=== PATIENT | female | born 1965 | race Caucasian/White ===

== ENCOUNTER → 2016-06-11 | Outpatient (CLI) | payer BC ==
[~2016-06-11] VITALS: Ht 167.6 cm; Wt 84.8 kg
[~2016-06-11] MED LIST: NABUMETONE 750750 M1 PO; TRIAMTERENE/HCT1 CA1 OR
--- NOTE | ~2016-06-11 | HPC ---
[facility] [place] [address] PAIN MANAGEMENT CONSULTATION Name: KELLY PEARL [id number] Admission: 06/11/16 Attend Phys: Wagner Vasquez DO Discharge: Date of : 61 Report #: [id number] THIS REPORT FOR: //name// CC: [facility] physician/PCP Josue Vasquez HISTORY OF PRESENT ILLNESS: The patient is a 51-year-old female seen in consultation at the request of Dr. Ramirez for evaluation of pain, low back, left hip and leg. The patient notes pain began about 9 months ago without antecedent trauma and overuse. She has been fairly active, pain has becomes problematic to the point that it interferes with function. She notes climbing stairs or walking exacerbates pain, developing some weakness in the left leg though she notes no bowel or bladder incontinence changes. Notes the pain is continuous, aching and tender, rates anywhere from 5-7 on a 0-10 visual analog scale. REVIEW OF SYSTEMS: Complete review of systems attached to chart and gone over with the patient. She is , does not smoke, drink alcohol to excess. History of some distant asthma, chronic osteoarthritis for which she has been seeing Dr. Ramirez for some time, primarily effects hands and elbow. She has been on Lyrica in the past, but it was quite costly and she discontinued it, does continue on nabumetone. Has had some issue with fluid retention episodically and takes triamterene. The patient had a knee surgery in 1997, bladder surgery (bladder sling) in 2005. She has two adult daughters, 27 and 31 years of age. 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 She has continued to work despite pain. Pain impact score is fairly low, averaging about 2.8 for all indices queried. PHYSICAL EXAMINATION: GENERAL: Reveals a 5 feet 6 inches, 187 pounds female in moderate distress. Blood pressure 159/73, pulse 80, respirations 16. NEUROLOGIC: Cranial nerves 2-12 are grossly intact. HEENT: Pupils equal and reactive to light and accommodation. Extraocular muscles are intact. NECK: Cervical range of motion is full. Thyroid is unremarkable. Upper extremity strength is preserved. HEART: Regular rhythmical without murmur. LUNGS: Clear to auscultation. ABDOMEN: Essentially unremarkable. EXTREMITIES: Rises from chair using armrest. Gait is tandem. Diffuse tenderness across the low back. A little bit of tenderness in the left SI area. She can walk on her toes and heels. Lumbar flexion is good and 90+ degrees though left hip flexion and plantar flexion strength is modestly diminished. Nominally positive straight leg raise on left. Patellar and Achilles reflexes are preserved. Jennifer test is nominally positive on the left side as well. [facility] [address] [place] [address] PAIN MANAGEMENT CONSULTATION Name: KELLY PEARL Room #: REG JOB Cat#: [id number] Admission: 06/11/16 Attend Phys: Wagner Vasquez DO Discharge: Date of : 61 Report #: [id number] DIAGNOSTIC STUDIES: Include MRI of the lumbar spine from 06/01/2016 noting L5-S1 to have marked narrowing of the disk space, large circumferential annular disk bulge with encroachment on bilateral S1 nerve roots, displacing the left S1 nerve root. There are degenerative changes in L3-L4, L4-L5 and L5-S1 as well. ASSESSMENT: Symptomatic lumbar radiculopathy, component of left SI joint dysfunction, lumbosacral spondylosis, history of osteoarthritis affecting hands and elbows. RECOMMENDATION: 1. Continue nabumetone 70 b.i.d. 2. Lumbar epidural injection under fluoroscopy today (L5-S1). Follow up in 3 weeks for reevaluation and consideration for repeat epidural injection if any clinically or possibly left SI joint injection. Thank you for allowing me to participate in the patient's care. I will keep you abreast of her progress. PROCEDURE: Lumbar epidural injection under fluoroscopy. PROCEDURE NOTE: After both written and informed consent to include risk of spinal cord damage, increased pain, weakness and dural puncture, the patient was taken to the fluoroscopy suite, placed in the prone position. After sterile prep and drape, a skin wheal with lidocaine was raised. A 22-gauge epidural Tuohy needle was inserted in the midline at L5-S1 with good loss to resistance. Negative aspiration for cerebrospinal fluid or blood was noted. Then 1 mL of Omnipaque under biplanar fluoroscopy showed good spread within the epidural space. This was followed with 80 mg of triamcinolone plus 1 mL of 1.5% preservative-free Xylocaine, 0.5 mL Xylocaine was then injected to flush the needle; it was removed. The patient was monitored for an appropriate period of time and discharged in good and stable condition. <ELECTRONICALLY SIGNED> By: Wagner Vasquez DO 06/13/16 0729 1410 1851 Wagner Vasquez DO /nt
[2016-06-11 13:09] VITALS: BP 159/73
== END ==
LOC: PAIN 07:06
DX: M47.27 Other spondylosis with radiculopathy, lumbosacral region (principal); M53.3 Sacrococcygeal disorders, not elsewhere classified; M19.042 Primary osteoarthritis, left hand; M19.041 Primary osteoarthritis, right hand; M19.022 Primary osteoarthritis, left elbow; M19.021 Primary osteoarthritis, right elbow

== ENCOUNTER → 2016-08-31 | Outpatient (CLI) | payer BC ==
[~2016-08-31] VITALS: Ht 167.6 cm; Wt 77.1 kg
--- NOTE | ~2016-08-31 | HPC ---
[facility] [place] [address] PAIN MANAGEMENT CONSULTATION Name: KELLY PEARL Dennis Room #: REG [facility] Lillie.#: [id number] Admission: 08/31/16 Attend Phys: Wagner Vasquez DO Discharge: Date of : 61 Report #: [id number] THIS REPORT FOR: //name// CC: [facility] physician/PCP Wagner Vasquez HISTORY OF PRESENT ILLNESS: The patient is a 51-year-old female, prior seen in the pain clinic on 07/06/2016, diagnosed as symptomatic lumbar radiculopathy, component of SI joint dysfunction. She had had a single lumbar epidural injection on 06/11/2016 and was doing well. Somewhat lost to follow up, returns to pain clinic today, noting lumbar radicular symptoms have recurred, pain is primarily little bit higher more in the left hip and groin. PHYSICAL EXAMINATION: Shows a 51-year-old female, BMI is 27.5 kilograms per meter squared. Vital signs stable as noted on the EMR. Rises from chair using armrests, has pain in the left hip and groin. Slight decreased left hip flexion strength. Passive rotation of the hip does not exacerbate pain. Jennifer test is negative. We reviewed MRI findings noting MRI from 06/01/2016 did have mild flattening of the thecal sac at L3-L4. ASSESSMENT: Symptomatic lumbar radiculopathy. RECOMMENDATION: Repeat epidural injection under fluoroscopy today at L2-L3 level today. PROCEDURE: Lumbar epidural injection under fluoroscopy. PROCEDURE NOTE: After both written and informed consent to include risk of spinal cord damage, increased pain, weakness and dural puncture, the patient was taken to the fluoroscopy suite, placed in the prone position. After sterile prep and drape, a skin wheal with lidocaine was raised. A 22-gauge epidural Tuohy needle was inserted in the midline at L2-L3 with good loss to resistance. Negative aspiration for cerebrospinal fluid or blood was noted. Then 1 mL of Omnipaque under biplanar fluoroscopy showed good spread within the epidural space. This was followed with 80 mg of triamcinolone plus 1 mL of 1.5% preservative-free Xylocaine, 0.5 mL Xylocaine was then injected to flush the needle; it was removed. The patient was monitored for an appropriate period of time and discharged in good and stable condition. The patient discharged in good stable condition. Follow up in 4 weeks to evaluate efficacy, cancel if doing well. [address] [address] PAIN MANAGEMENT CONSULTATION Name: KELLY PEARL Room #: REG [facility]#: [id number] Admission: 08/31/16 Attend Phys: Wagner Vasquez DO Discharge: Date of : 61 Report #: [id number] Thanks for allowing me to participate in the patient's care. I am happy to report that on discharge pain is absent. <ELECTRONICALLY SIGNED> By: Wagner Vasquez DO 09/03/16 0750 1600 0140 Wagner Vasquez DO /maye
[2016-08-31 14:18] VITALS: BP 140/84
== END ==
LOC: PAIN 07:18
DX: M54.16 Radiculopathy, lumbar region (principal)

== ENCOUNTER → 2017-06-03 | Outpatient (CLI) | payer OTHER ==
[~2017-06-03] VITALS: Ht 167.6 cm; Wt 77.6 kg
--- NOTE | ~2017-06-03 | HPC ---
[facility] [place] [address] PAIN MANAGEMENT CONSULTATION Name: DAEMARIELOSShanna Collins Room #: REG [facility]#: [id number] Admission: 06/03/17 Attend Phys: Wagner Vasquez DO Discharge: Date of : 61 Report #: [id number] THIS REPORT FOR: //name// CC: Dionisio Vasquez The patient is a pleasant 52-year-old female. She was seen twice, initially seen back in May, given epidural injection at that time. She had excellent relief of symptoms with gradual return. We did a second injection, 08/31/2016. The patient returns to pain clinic today noting that injection afforded excellent relief. The pain began to recur around Thanks. She notes she has been using ibuprofen over the counter (unfortunately, concurrent with Relafen 750 b.i.d.). She notes pain is in the low back, left gluteal area down the left ankle. She denies any weakness or paresthesia. PHYSICAL EXAMINATION: Shows pleasant 52-year-old female, BMI is 27.6 kilograms per meter squared. Blood pressure is modestly elevated 156/90, pulse 95, respirations 14. Rises from chair using armrest, modestly antalgic gait, positive straight leg raise on the left, slight decreased right hip flexion strength. Jennifer test is negative. Lower range of motion is good. We reviewed diagnostic findings including MRI from May of 2016. It does note left facet hypertrophy at L4-L5 with large circumferential disk bulging at L5-S1, marked narrowing of the disk space with facet encroachment, left greater than right. ASSESSMENT: Symptomatic lumbar radiculopathy by clinical exam and history. RECOMMENDATION: 1. Repeat epidural injection under fluoroscopy today. 2. Follow up in 2-3 weeks for reevaluation. Cancel if doing well. PROCEDURE NOTE: Lumbar epidural injection under fluoroscopy. PROCEDURE: Lumbar epidural steroid injection. PROCEDURE NOTE: After both written and informed consent to include risk of spinal cord damage, increased pain, weakness and dural puncture, the patient was taken to the fluoroscopy suite, placed in the prone position. After sterile prep and drape, a skin wheal with lidocaine was raised. A 22-gauge epidural Tuohy needle was inserted in the midline at L4-L5 with good loss to resistance. Negative aspiration for cerebrospinal fluid or blood was noted. Then 1 mL of Omnipaque under biplanar fluoroscopy showed good spread within the epidural space. This was followed with 80 mg of triamcinolone plus 1 mL of 1.5% preservative-free Xylocaine, 0.5 mL Xylocaine was then injected to flush the [address] [address] PAIN MANAGEMENT CONSULTATION Name: KELLY PEARL Room #: REG [facility]#: [id number] Admission: 06/03/17 Attend Phys: Wagner Vasquez DO Discharge: Date of : 61 Report #: [id number] needle; it was removed. The patient was monitored for an appropriate period of time and discharged in good and stable condition. <ELECTRONICALLY SIGNED> By: Wagner Vasquez DO 06/05/17 0816 1234 1803 Wagner Vasquez DO /nt
[2017-06-03 10:06] VITALS: BP 156/90
== END | disposition home or self-care (01) ==
LOC: PAIN 09-28 15:12
DX: M54.16 Radiculopathy, lumbar region (principal); G89.29 Other chronic pain; Z98.890 Other specified postprocedural states

== ENCOUNTER → 2017-07-12 | Outpatient (CLI) | payer OTHER ==
[~2017-07-12] VITALS: Ht 167.6 cm; Wt 76.7 kg
--- NOTE | ~2017-07-12 | HPC ---
[facility] [address] PAIN MANAGEMENT CONSULTATION Name: DAEMARIELOSShanna Collins Room #: REG [facility]#: [id number] Admission: 07/12/17 Attend Phys: Wagner Vasquez DO Discharge: Date of : 61 Report #: [id number] THIS REPORT FOR: //name// CC: Dionisio Vasquez The patient is a pleasant 52-year-old female being treated for symptomatic lumbar radiculopathy. Initially, she had an epidural injection greater than a year ago in May 2016, subsequent injection in August 2016, somewhat lost to follow up, pain had recurred, I saw her in May 2017 (06/03/2017), I did an epidural injection at L4-L5. The patient notes near 100% improvement of baseline pain. She notes pain; however, did begin to recur last week when she was in [place], she did a fair bit of walking, in fact she noted up to 18,000 steps one day last week. Pain has recurred, low back, bilateral legs, in a classic L4 radicular pattern. PHYSICAL EXAMINATION: Modestly antalgic gait, positive straight leg raise on the left at 30 degrees. ASSESSMENT: Symptomatic lumbar radiculopathy. RECOMMENDATIONS: 1. Repeat epidural injection under fluoroscopy today at L4-L5. 2. If symptoms recur quickly, we will get an MRI and refer the patient to neurosurgery for a discussion of further interventional options. Presently; however, I am hopeful injection will attenuate symptoms and we will see the patient simply on as needed basis. PROCEDURE: Lumbar epidural injection under fluoroscopy. PROCEDURE NOTE: After both written and informed consent to include risk of spinal cord damage, increased pain, weakness and dural puncture, the patient was taken to the fluoroscopy suite, placed in the prone position. After sterile prep and drape, a skin wheal with lidocaine was raised. A 22-gauge epidural Tuohy needle was inserted in the midline at L4-L5 with good loss to resistance. Negative aspiration for cerebrospinal fluid or blood was noted. Then 1 mL of Omnipaque under biplanar fluoroscopy showed good spread within the epidural space. This was followed with 80 mg of triamcinolone plus 1 mL of 1.5% preservative-free Xylocaine, 0.5 mL Xylocaine was then injected to flush the needle; it was removed. The patient was monitored for an appropriate period of time and discharged in good and stable condition. <ELECTRONICALLY SIGNED> By: Wagner Vasquez DO 07/15/17 0747 1233 1731 Wagner Vasquez DO /nt
[2017-07-12 11:12] VITALS: BP 135/86
== END ==
LOC: PAIN 07:02
DX: M54.16 Radiculopathy, lumbar region (principal)

== ENCOUNTER → 2018-08-19 | Outpatient (CLI) | payer OTHER ==
[~2018-08-19] VITALS: Ht 167.6 cm; Wt 79.5 kg
[2018-08-19 09:52] VITALS: BP 146/82
--- NOTE | 2018-08-19 10:04 | NUR ---
Pain Clinic Assessment: 1. History of Osteoarthritis: B/L HIPS B/L ELBOWS B/L SHOULDERS B/L ANKLES History of Rheumatoid Arthritis: NONE 2. Height: 5 ft. 6 in. 167.6 cm. Weight: 175.2 lb. oz. 79.470 kg. Patient's BMI: 28.3 3. Vital Signs: BP: 146/82 Pulse: 90 Resp: 14 Temp: 02 Sat: 100 ECG Mon: 4. Pain Intensity: 4/5 5. Fall Risk: Dizziness: N Needs help standing or walking: N Fallen in the last 3 months: N Fall risk comments: 6. Patient on Blood Thinner: None 7. History of Hypertension: Y 8. Opioid Therapy greater than 6 weeks: N Opiate Contract Signed: 9. Risk Assessment Tool Provided: 10. Functional Assessment Tool: 11. Recreational Drug Use: Never Drug Type: Tobacco Use: Never Smoker Tobacco Type: Amount or Packs/day: How Many Years: Alcohol Use: No Frequency: Quant:
--- NOTE | 2018-08-21 08:41 | HPC ---
[facility] [place] [address] PAIN MANAGEMENT CONSULTATION Name: KELLY PEARL Room #: REG [facility] Lillie.#: [id number] Admission: 08/19/18 ������������������ Attend Phys: Sabas Vasquez DO Discharge: ������������������ Date of : 61 Report #: [id number] THIS REPORT FOR: //name// CC: Sabas Mcgarth DATE OF SERVICE: 08/19/2018 REFERRING PHYSICIAN: Josue Ramirez M.D. CHIEF COMPLAINT: Low back pain with left lower extremity pain with paresthesias. HISTORY OF PRESENT ILLNESS: As you know, the patient is a 53-year-old female who [facility]2016 by her primary care physician, Dr. Josue Ramirez for evaluation for lumbar radiculopathy. The patient has undergone successfully epidural injections 06/11/2016, 08/31/2016 and 06/03/2017 and again 07/12/2017; all of which provided benefit to the patient. She reports the last epidural injection has provided 100% improvement for over a year. She has had a slow and progressive return of symptoms, now placing pain score 4-5/10. She denies any specific new injury or trauma that may have led to symptom recurrence. She has been referred back to our clinic to trial next in the series of lumbar epidural injections in hopes of improving pain. She continues to participate in daily activities. Also, is doing some light stretching exercises at home. Despite this, she has noted no improvement in symptoms. She describes the pain as aching, constant and sharp, exacerbated with certain movements, appears to be worse in the morning hours or sitting for long periods of time, improves with lying down and the previous epidural injection. ALLERGIES: No known drug allergies. CURRENT MEDICATIONS: Triamterene/hydrochlorothiazide 37.5/25 mg once a day and nabumetone 750 mg b.i.d. SOCIAL HISTORY: The patient reports she is a nonsmoker. Denies IV or illicit drug use. Denies any chronic alcohol use. 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 She is working, not receiving workmen's compensation nor is she trying to obtain disability benefits. Unaccompanied today. IMAGING DATA: There is no new imaging available. PHYSICAL EXAMINATION: VITAL SIGNS: Blood pressure 146/82, pulse is 90 and respiratory rate 14 and [facility] [address] [place] [address] PAIN MANAGEMENT CONSULTATION Name: KELLY PEARL Room #: REG [facility] Cat#: [id number] Admission: 08/19/18 ������������������ Attend Phys: Sabas Vasquez DO Discharge: ������������������ Date of : 61 Report #: [id number] unlabored. The patient is 100% on room air. Height 5 feet 6 inches tall, weight 175.2 pounds and BMI calculated 28.3. GENERAL: Well-developed, well-nourished and well-hydrated 53-year-old female appearing stated age. She is placing current pain score at 4-5/10. HEENT: Normocephalic and atraumatic. Pupils equal, round and reactive to light. Extraocular muscles are intact. Sclerae nonicteric, without injection. EXTREMITIES: Show no clubbing, no cyanosis and no edema. MUSCULOSKELETAL: Seated straight leg raising negative. Supine straight leg raising positive on the left. Jennifer's test negative. Modified Gaenslen's positive for axial low back pain. Ankle clonus negative. Babinski is negative. Lumbar provocation testing is met with mild increase in overall pain. ASSESSMENT: 1. Symptomatic lumbar radiculopathy. 2. Displacement of the lumbar intervertebral disk with radiculopathy. 3. Lumbosacral spondylosis with radiculopathy. 4. Chronic intractable pain. PLAN: 1. The patient returns today in followup visit requesting to undergo next in the series of lumbar epidural injections under fluoroscopic guidance. The patient has had success with these injections in the past, the most recent providing near year and a half improvement in overall pain. She has returned today in followup visit, denying any specific injury or trauma that may have led to symptom development. She has requested that we begin the authorization process to undergo a lumbar epidural injection under fluoroscopic guidance. The patient was advised that due to third libertarian payer restrictions, prior authorization will be necessary for the patient could undergo an epidural injection under fluoroscopic guidance. We will begin this process immediately and contact the patient once this has been completed for her to undergo an epidural injection under fluoroscopic guidance. I advised the patient this could take anywhere from 4-7 working days and we begin this process immediately and contact the patient once this has been completed to reschedule for the next in the series of lumbar epidural injections. 2. No medication changes made at today's visit. The patient will continue current medical therapy as previously prescribed. 3. We will see the patient back in followup visit once we have obtained authorization for the patient to undergo a lumbar epidural injection under fluoroscopic guidance to address her lumbar radicular symptoms. We will be addressing the left L5 dermatomal distribution noted on physical exam. ��������������������������������������������� <ELECTRONICALLY SIGNED> ���������������������������������������� By: Sabas Vasquez DO ��������������������������������������������� 08/21/18 0841 1231 0133 Sabas Vasquez DO /nt
== END ==
LOC: PAIN 06:50
DX: M47.27 Other spondylosis with radiculopathy, lumbosacral region (principal); G89.4 Chronic pain syndrome

== ENCOUNTER → 2018-08-26 | Outpatient (CLI) | payer OTHER ==
[~2018-08-26] VITALS: Ht 167.6 cm; Wt 78.7 kg
[2018-08-26 10:16] VITALS: BP 138/80
--- NOTE | 2018-08-26 10:32 | NUR ---
Pain Clinic Assessment: 1. History of Osteoarthritis: B/L HIPS B/L ELBOWS B/L SHOULDERS B/L ANKLES History of Rheumatoid Arthritis: NONE 2. Height: 5 ft. 6 in. 167.6 cm. Weight: 173.6 lb. oz. 78.744 kg. Patient's BMI: 28.0 3. Vital Signs: BP: 138/80 Pulse: 83 Resp: 16 Temp: 02 Sat: 100 ECG Mon: 4. Pain Intensity: 4-5 5. Fall Risk: Dizziness: N Needs help standing or walking: N Fallen in the last 3 months: N Fall risk comments: 6. Patient on Blood Thinner: None 7. History of Hypertension: Y 8. Opioid Therapy greater than 6 weeks: N Opiate Contract Signed: 9. Risk Assessment Tool Provided: 10. Functional Assessment Tool: 11. Recreational Drug Use: Never Drug Type: Tobacco Use: Never Smoker Tobacco Type: Amount or Packs/day: How Many Years: Alcohol Use: No Frequency: Quant:
== END | disposition home or self-care (01) ==
LOC: PAIN 06:53
DX: M54.16 Radiculopathy, lumbar region (principal); G89.29 Other chronic pain

== ENCOUNTER → 2019-11-04 | Outpatient (CLI) | payer OTHER ==
[~2019-11-04] VITALS: Ht 167.6 cm; Wt 83.0 kg
[~2019-11-04] MED LIST changes: +SUPER THERAVIT1 EACH PO; +VITAMIN E1000 UNIT PO
[2019-11-04 13:56] VITALS: BP 164/78
--- NOTE | 2019-11-04 14:05 | NUR ---
Pain Clinic Assessment: 1. History of Osteoarthritis: B/L HIPS B/L ELBOWS B/L SHOULDERS B/L ANKLES History of Rheumatoid Arthritis: NONE 2. Height: 5 ft. 6 in. 167.6 cm. Weight: 183.0 lb. oz. 83.008 kg. Patient's BMI: 29.6 3. Vital Signs: BP: 164/78 Pulse: 83 Resp: 16 Temp: 02 Sat: 99 ECG Mon: 4. Pain Intensity: 5 5. Fall Risk: Dizziness: N Needs help standing or walking: N Fallen in the last 3 months: N Fall risk comments: 6. Patient on Blood Thinner: None 7. History of Hypertension: Y 8. Opioid Therapy greater than 6 weeks: N Opiate Contract Signed: 9. Risk Assessment Tool Provided: low-0 10. Functional Assessment Tool: 11. Recreational Drug Use: Never Drug Type: Tobacco Use: Never Smoker Tobacco Type: Amount or Packs/day: How Many Years: Alcohol Use: No Frequency: Quant:
--- NOTE | 2019-11-10 09:19 | P ---
[facility] [place] [address] PROCEDURE REPORT Name: KELLY PEARL Dennis Room #: REG [facility].#: [id number] Admission: 11/04/19 Attend Phys: Sabas Vasquez DO Discharge: Date of : 61 Report #: [id number] THIS REPORT FOR: cc: Dionisio Jane MD, Phyllis L. DO Johnson, James E. DO ~ DATE OF SERVICE: 11/04/2019 DESCRIPTION OF PROCEDURE: L4-L5 left paramedian epidural steroid injection under fluoroscopic guidance. After obtaining written consent, the patient was taken back to fluoroscopy suite, placed in prone position with pillow under abdomen to decrease lumbar lordosis. Skin overlying lumbosacral area then prepped and draped in aseptic fashion. The L4-L5 vertebral interspace was identified by AP fluoroscopy. Skin and subcutaneous tissue overlying target site injection anesthetized with 3 mL of 1% lidocaine. A 20-gauge 3-1/2 inch Tuohy needle advanced under fluoroscopic guidance towards the epidural space using left paramedian approach. Epidural space identified using loss of resistance to air technique. After negative aspiration for heme or cerebrospinal fluid, 1 mL of Omnipaque injected. Lumbar epidurogram confirmed using both AP and lateral fluoroscopy. After negative aspiration for heme or cerebrospinal fluid, 5 mL of a solution containing 2 mL 40 mg per mL, 80 mg total of triamcinolone along with 3 mL of lidocaine 1% injected slowly. Needle retracted penitentiary, flushed with 1 mL of 1% lidocaine and then removed. Sterile bandage placed over injection site. There were no new motor deficits present in lower extremity following procedure. The patient tolerated procedure well, carefully escorted to recovery room in stable condition. No apparent complications. After meeting discharge criteria, the patient discharged home. <ELECTRONICALLY SIGNED> By: Sabas Vasquez DO 11/10/19 0919 0814 0832 Sabas Vasquez DO /nt
--- NOTE | 2019-11-10 09:19 | HPC ---
[facility] [place] [address] PAIN MANAGEMENT CONSULTATION Name: KELLY PEARL Room #: REG [facility]..#: [id number] Admission: 11/04/19 Attend Phys: Sabas Vasquez DO Discharge: Date of : 61 Report #: [id number] THIS REPORT FOR: cc: Dionisio Jane MD, Phyllis L. DO Johnson, James E. DO ~ DATE OF SERVICE: 11/04/2019 CHIEF COMPLAINT: Low back pain, left lower extremity pain and paresthesias. HISTORY OF PRESENT ILLNESS: As you know, the patient is a 54-year-old female referred to our service by her primary care physician, Dr. Josue Ramirez, for evaluation for lumbar radiculopathy. The patient has undergone treatment since 2017 with intermittent lumbar epidural injection. She returns today in followup visit to undergo next in the series. She is placing pain today at 5/10. She describes the pain as aching, constant, sharp involving low back and left lower extremity. She returns today in followup visit for next in the series of epidural injections in hopes of improving pain. She reports previous epidural injection providing 90% improvement in overall pain, lasting for 8 months. She returns today in followup visit, denying new injury or trauma. ALLERGIES: SULFA. CURRENT MEDICATIONS: Nabumetone, hydrochlorothiazide/triamterene, multivitamins, vitamin E acetate. SOCIAL HISTORY: The patient reports she is a nonsmoker. Denies IV or illicit drug use. Denies any chronic alcohol use. She is working, not receiving workmen's compensation, unaccompanied today. IMAGING: No new imaging available. PHYSICAL EXAMINATION: VITAL SIGNS: Blood pressure 164/78, pulse is 83, respiratory rate 16 and unlabored, the patient is 99% on room air. Height 5 feet 6 inches tall, weight 183 pounds, BMI calculated 29.6. GENERAL: Well-developed, well-nourished, well-hydrated 54-year-old female appearing stated age. Pain is rated today 5/10. HEENT: Normocephalic, atraumatic. Pupils equal, round and reactive. Speech is fluent. EXTREMITIES: Show no clubbing, no cyanosis, and no edema. MUSCULOSKELETAL: Seated straight leg raising remains negative. Supine straight leg raising positive on the left at about 70-degree angle. Ankle clonus negative. Babinski is negative. Jennifer's test negative. Modified Gaenslen's positive for some axial low back pain without radiation of symptoms. [address] [address] PAIN MANAGEMENT CONSULTATION Name: KELLY PEARL Room #: [facility]#: [id number] Admission: 11/04/19 Attend Phys: Sabas Vasquez DO Discharge: Date of : 61 Report #: [id number] bulk and tone equal and symmetrical in lower extremities. ASSESSMENT: 1. Symptomatic lumbar radiculopathy. 2. Displaced lumbar intervertebral disk with radiculopathy. 3. Lumbosacral spondylosis with radiculopathy. 4. Chronic intractable pain. PLAN: 1. The patient returns today in followup visit requesting to undergo a lumbar epidural injection under fluoroscopic guidance. She reports 90% improvement in overall pain, lasting for nearly 8 months. Unfortunately, she has had a slow and progressive return of symptoms. There has been no new inciting injury or trauma. She returns today in followup visit requesting lumbar epidural injection under fluoroscopic guidance. The patient has been advised risks and benefits of a lumbar epidural injection. These risks include but are not necessarily limited to bleeding, bruising, infection, worsening pain, no relief of pain, also risk of temporary or permanent muscle weakness, temporary or permanent nerve damage, possible paralysis and . The patient states understood and wished to proceed. 2. No medication changes made at today's visit. The patient will continue current medical therapy as prior prescribed. 3. We will see the patient back in followup visit on an as needed basis for possible next in the series of epidural injections. <ELECTRONICALLY SIGNED> By: Sabas Vasquez DO 11/10/19 0919 0814 0828 Sabas Vasquez DO /nt
== END | disposition home or self-care (01) ==
LOC: PAIN 06:57
PROVIDERS: ATTEND Anesthesiology Pain Medicine
DX: M51.16 Intervertebral disc disorders with radiculopathy, lumbar region (principal); M47.27 Other spondylosis with radiculopathy, lumbosacral region; G89.29 Other chronic pain; Z98.890 Other specified postprocedural states; Z88.2 Allergy status to sulfonamides

== ENCOUNTER → 2020-06-21 | Outpatient (CLI) | payer OTHER ==
[~2020-06-21] VITALS: Ht 167.6 cm; Wt 84.6 kg
[2020-06-21 09:16] VITALS: BP 137/72
--- NOTE | 2020-06-21 09:25 | NUR ---
Pain Clinic Assessment: 1. History of Osteoarthritis: B/L HIPS B/L ELBOWS B/L SHOULDERS B/L ANKLES BACK History of Rheumatoid Arthritis: NONE 2. Height: 5 ft. 6 in. 167.6 cm. Weight: 186.6 lb. oz. 84.641 kg. Patient's BMI: 30.1 3. Vital Signs: BP: 137/72 Pulse: 96 Resp: 14 Temp: 02 Sat: 99 ECG Mon: 4. Pain Intensity: 5.5 5. Fall Risk: Dizziness: N Needs help standing or walking: N Fallen in the last 3 months: N Fall risk comments: 6. Patient on Blood Thinner: None 7. History of Hypertension: Y 8. Opioid Therapy greater than 6 weeks: N Opiate Contract Signed: 9. Risk Assessment Tool Provided: low-0 10. Functional Assessment Tool: 11. Recreational Drug Use: Never Drug Type: Tobacco Use: Never Smoker Tobacco Type: Amount or Packs/day: How Many Years: Alcohol Use: No Frequency: Quant:
--- NOTE | 2020-06-22 10:29 | HPC ---
[facility] [place] [address] PAIN MANAGEMENT CONSULTATION Name: KELLY PEARL Room #: REG [facility] Lillie.#: [id number] Admission: 06/21/20 Attend Phys: Sabas Vasquez DO Discharge: Date of : 61 Report #: [id number] THIS REPORT FOR: cc: Dionisio Jane MD, Phyllis L. DO Johnson, James E. DO ~ DATE OF SERVICE: 06/21/2020 REFERRING PHYSICIAN: Josue Ramirez MD CHIEF COMPLAINT: Low back pain, left lower extremity pain with paresthesias. HISTORY OF PRESENT ILLNESS: As you know, the patient is a 55-year-old female who has had a longstanding history of low back pain, left lower extremity pain and paresthesias presented in 2017. She has had recurrence of symptoms that began recently with lifting heavy objects at her workplace. She reports that she has been more active of late due to lack of staff at her job able to do the heavy lifting projects. This has left the patient having to perform these tasks and this has led to recurrence of her low back and left lower extremity symptoms. She places her current pain score at 5-1/2/10. She returns today in followup visit to undergo next in the series of epidural injections. She reports the previous epidural injection gave an improvement in symptoms of 80%, lasting for almost 6 full months. She returns today in followup visit requesting to undergo next in the series of epidural injections to build on success of previous intervention. ALLERGIES: No known drug allergies. CURRENT MEDICATIONS: Nabumetone 750 mg b.i.d., hydrochlorothiazide/triamterene 37.5/25 mg once a day, multivitamin 1 tab per day, vitamin E 1000 units per day. SOCIAL HISTORY: The patient reports she is a nonsmoker. Denies IV or illicit drug use. Denies any chronic alcohol use. She is employed, working, not receiving workmen's compensation, unaccompanied today. IMAGING: No new imaging available. PHYSICAL EXAMINATION: VITAL SIGNS: Blood pressure 137/72, pulse is 96, respiratory rate 14 and unlabored. The patient is 99% on room air. Height 5 feet 6 inches tall, weight 186.6 pounds, BMI calculated 30.1. GENERAL: Well-developed, well-nourished, well-hydrated 55-year-old female appearing stated age. She is in no acute distress, awake, alert and oriented x 3. Current pain score 5-//10. HEENT: Normocephalic, atraumatic. Pupils are round. Extraocular muscles are [address] [address] PAIN MANAGEMENT CONSULTATION Name: KELLY PEARL Dennis Room #: [facility]#: [id number] Admission: 06/21/20 Attend Phys: Sabas Vasquez DO Discharge: Date of : 61 Report #: [id number] intact. The patient is wearing a mask in compliance with COVID-19 regulations. EXTREMITIES: Show no clubbing, no cyanosis. No appreciable edema. MUSCULOSKELETAL: Lower extremity strength appears symmetrical 5/5, intact to light touch from L1 through S2 dermatomes. Seated straight leg raising negative. Supine straight leg raising positive on the left at approximately 60-degree angle. Ankle clonus negative. Babinski is negative. ASSESSMENT: 1. Symptomatic lumbar radiculopathy. 2. Displacement of lumbar intervertebral disk with radiculopathy. 3. Lumbosacral spondylosis with radiculopathy. 4. Chronic intractable pain. PLAN: 1. The patient returns today in followup visit requesting to undergo next in the series of epidural injections. The patient reports 80% improvement in overall pain lasting for almost 6 months' with previous injection. Unfortunately, the patient has been involved in much more heavy lifting due to COVID-19 causing reduction in her staff at work. This has required that the patient now do a lot more lifting than she had in the past and she believes this is what exacerbated her symptoms. She has returned requesting a lumbar epidural injection under fluoroscopic guidance in hopes of building on success of previous intervention. The patient has been advised risks and benefits of the procedure, states understood and wished to proceed. 2. No medication changes made at today's visit. The patient will continue current medical therapy as prior prescribed. 3. We will see the patient back in followup visit on an as needed basis for possible next in the series of lumbar epidural injections. We are hopeful the patient will see once again good and prolonged benefit with today's procedure. PROCEDURE NOTE DESCRIPTION OF PROCEDURE: L4-L5 left paramedian epidural steroid injection under fluoroscopic guidance. After obtaining written consent, the patient was taken back to fluoroscopy suite, placed in prone position with pillow under abdomen to decrease lumbar lordosis. Skin overlying lumbosacral area prepped and draped in aseptic fashion. The L4-L5 vertebral interspace was identified by AP fluoroscopy. Skin and subcutaneous tissue overlying target site injection anesthetized with 3 mL of 1% lidocaine. A 20-gauge 3-1/2 inch Tuohy needle advanced under fluoroscopic guidance towards the epidural space using a paramedian approach. Epidural space identified using loss of resistance to air technique. After negative aspiration for heme or cerebrospinal fluid, 1 mL of Omnipaque injected. A lumbar epidurogram was [address] [address] PAIN MANAGEMENT CONSULTATION Name: KELLY PEARL [id number] Admission: 06/21/20 Attend Phys: Sabas Vasquez DO Discharge: Date of : 61 Report #: [id number] confirmed using both AP and lateral fluoroscopy. After negative aspiration for heme or cerebrospinal fluid, 5 mL of a solution containing 2 mL 40 mg per mL, 80 mg total triamcinolone along with 3 mL of lidocaine 1% injected slowly. Needle retracted half-way, flushed with 1 mL of 1% lidocaine and then removed. Sterile bandage placed over injection site. There were no new motor deficits present in lower extremity following procedure. The patient tolerated procedure well, carefully escorted to recovery room in stable condition. No apparent complications. After meeting discharge criteria, the patient discharged home. <ELECTRONICALLY SIGNED> By: Sabas Vasquez DO 06/22/20 1029 1213 1316 Sabas Vasquez DO /nt
== END | disposition home or self-care (01) ==
LOC: PAIN 06:48
PROVIDERS: ATTEND Anesthesiology Pain Medicine
DX: M51.16 Intervertebral disc disorders with radiculopathy, lumbar region (principal); M47.27 Other spondylosis with radiculopathy, lumbosacral region; G89.29 Other chronic pain; Z98.890 Other specified postprocedural states; Z79.899 Other long term (current) drug therapy; Z88.2 Allergy status to sulfonamides

== ENCOUNTER → 2020-10-05 | Outpatient (CLI) | payer OTHER ==
[~2020-10-05] VITALS: Ht 167.6 cm; Wt 83.8 kg
[2020-10-05 09:41] VITALS: BP 145/82
--- NOTE | 2020-10-05 09:51 | NUR ---
Pain Clinic Assessment: 1. History of Osteoarthritis: B/L HIPS B/L ELBOWS B/L SHOULDERS B/L ANKLES BACK History of Rheumatoid Arthritis: NONE 2. Height: 5 ft. 6 in. 167.6 cm. Weight: 184.8 lb. oz. 83.825 kg. Patient's BMI: 29.8 3. Vital Signs: BP: 145/82 Pulse: 82 Resp: 14 Temp: 02 Sat: 100 ECG Mon: 4. Pain Intensity: 5 5. Fall Risk: Dizziness: N Needs help standing or walking: N Fallen in the last 3 months: N Fall risk comments: 6. Patient on Blood Thinner: None 7. History of Hypertension: Y 8. Opioid Therapy greater than 6 weeks: N Opiate Contract Signed: 9. Risk Assessment Tool Provided: low-0 10. Functional Assessment Tool: 11. Recreational Drug Use: Never Drug Type: Tobacco Use: Never Smoker Tobacco Type: Amount or Packs/day: How Many Years: Alcohol Use: No Frequency: Quant:
--- NOTE | 2020-10-12 08:22 | HPC ---
[facility] [place] [address] PAIN MANAGEMENT CONSULTATION Name: KELLY PEARL Room #: REG [facility].#: [id number] Admission: 10/05/20 Attend Phys: Sabas Vasquez DO Discharge: Date of : 61 Report #: [id number] THIS REPORT FOR: cc: Dionisio Jane MD, Jason MD Johnson, James E. DO ~ DOC #: [id number] cc: MD Sabas See, DATE OF SERVICE: 10/05/2020 REFERRING PHYSICIAN: Dr. Dionisio Jane CHIEF COMPLAINT: Low back pain, left lower extremity pain with paresthesias. HISTORY OF PRESENT ILLNESS: As you know, the patient is a pleasant 55-year-old female who reports acute onset of low back pain, left lower extremity pain with paresthesias that began in May 2016. The patient has been seen periodically for lumbar epidural injections under fluoroscopic guidance with good efficacy. The most recent epidural injection was provided on 08/19/2018 for which the patient reported 80% an improvement in overall pain lasting until just recently where she has had a slow and progressive return of symptoms. She has returned today in followup visit requesting a lumbar epidural injection under fluoroscopic guidance. She denies injury or trauma that may have led to symptom reoccurrence. She describes pain at a level of 5/10 and pain radiates from the low back down the left leg all the way to the foot. She describes it as constant, sharp, numbness and tingling, exacerbated with activity, sitting and improves with lying down and previous epidural injections. She returns for next in the series of epidural injections. ALLERGIES: SULFA. CURRENT MEDICATIONS: Nabumetone 750 mg b.i.d., triamterene/hydrochlorothiazide 37.5/25 mg once a day, multivitamin one tab per day, vitamin E 1000 units per day. SOCIAL HISTORY: The patient is a nonsmoker. Denies IV or illicit drug use. Denies any chronic alcohol use. She is working, not receiving workmen's compensation, unaccompanied today. IMAGING: No new imaging available. PHYSICAL EXAMINATION: VITAL SIGNS: Blood pressure 145/82, pulse 82, respiratory rate 14 and unlabored. The patient 100% on room air. Height 5 feet 6 inches tall, weight 184.8 pounds, BMI [place] 29[place] [address] PAIN MANAGEMENT CONSULTATION Name: KELLY PEARL [id number] Admission: 10/05/20 Attend Phys: Sabas Vasquez DO Discharge: Date of : 61 Report #: [id number] GENERAL: Well-developed, well-nourished, well-hydrated 55-year-old female appearing stated age. Pain is rated today at 5/10. HEENT: Normocephalic, atraumatic. Pupils equal, round and responsive. EXTREMITIES: Show no clubbing, no cyanosis. No appreciable edema. MUSCULOSKELETAL: Lower extremity strength is symmetrical 5/5. Muscle bulk and tone equal and symmetrical in lower extremities. Seated straight leg raising is negative again today. Supine straight leg raising positive on the left at approximately 60-degree angle. Ankle clonus negative. Babinski is negative. Gait mildly antalgic, favoring left lower extremity. ASSESSMENT: 1. Symptomatic lumbar radiculopathy. 2. Displacement of lumbar intervertebral disk with radiculopathy. 3. Lumbosacral spondylosis with radiculopathy. 4. Chronic intractable pain. PLAN: 1. The patient returns today in followup visit to undergo lumbar epidural injection under fluoroscopic guidance. She reports about an 80% improvement in overall pain with previous epidural injection, but unfortunately, her symptoms have begun to return. She returns today in followup visit to undergo lumbar epidural injection. She has been advised the risks and benefits of the procedure, states understood and wished to proceed. 2. No medication changes made at today's visit. The patient will continue current medical therapy as prior prescribed. 3. We plan to see the patient back in followup visit on an as needed basis for the next in the series of lumbar epidural PROCEDURE NOTE DESCRIPTION OF PROCEDURE: L4-L5 left paramedian epidural steroid injection under fluoroscopic guidance. After obtaining written consent, the patient was taken back to fluoroscopy suite, placed in prone position with pillow under abdomen to decrease lumbar lordosis. Skin overlying lumbosacral area prepped and draped in aseptic fashion. The L4-L5 interspace was identified by AP fluoroscopy. Skin and subcutaneous tissue overlying target site injection anesthetized with 3 mL 1% lidocaine. A 20 gauge 3-1/2 inch Tuohy needle advanced under fluoroscopic guidance towards the epidural space using a left paramedian approach. Epidural space identified using loss of resistance to air technique. After negative aspiration for heme or cerebrospinal fluid, 1 mL of Omnipaque injected. Lumbar epidurogram was confirmed using both AP and lateral fluoroscopy. After negative aspiration for heme or cerebrospinal fluid, 5 mL solution containing 2 mL 40 mg per mL [address] [address] PAIN MANAGEMENT CONSULTATION Name: KELLY PEARL Room #: [facility] Cat#: [id number] Admission: 10/05/20 Attend Phys: Sabas Vasquez DO Discharge: Date of : 61 Report #: [id number] total triamcinolone along with 3 mL of lidocaine, 1% injected slowly. Needle retracted approximately half way, flushed with 1 mL of 1% lidocaine and then removed. Sterile bandage placed over injection site. No new motor deficits present in lower extremity following procedure. The patient tolerated the procedure well, carefully escorted to recovery room in stable condition. No apparent complications. After meeting discharge criteria, the patient discharged home. Sabas Vasquez DO JEJ/MARIANT <ELECTRONICALLY SIGNED> By: Sabas Vasquez DO 10/12/20 0822 1512 2327 Sabas Vasquez DO /nt
== END | disposition home or self-care (01) ==
LOC: PAIN 09:28
PROVIDERS: ATTEND Anesthesiology Pain Medicine
DX: M51.16 Intervertebral disc disorders with radiculopathy, lumbar region (principal); M47.27 Other spondylosis with radiculopathy, lumbosacral region; G89.29 Other chronic pain; Z98.890 Other specified postprocedural states; Z79.899 Other long term (current) drug therapy; Z88.2 Allergy status to sulfonamides

== ENCOUNTER → 2021-04-26 | Outpatient (CLI) | payer OTHER ==
[~2021-04-26] VITALS: Ht 167.6 cm; Wt 84.4 kg
[~2021-04-26] MED LIST changes: +LIPITOR40 MG PO; +MELOXICAM7.5 MG PO; +ZETIA10 MG PO
[2021-04-26 11:28] VITALS: BP 149/82
--- NOTE | 2021-04-26 11:33 | NUR ---
Pain Clinic Assessment: 1. History of Osteoarthritis: B/L HIPS B/L ELBOWS B/L SHOULDERS B/L ANKLES BACK History of Rheumatoid Arthritis: NONE 2. Height: 5 ft. 6 in. 167.6 cm. Weight: 186.0 lb. oz. 84.369 kg. Patient's BMI: 30.0 3. Vital Signs: BP: 149/82 Pulse: 83 Resp: 16 Temp: 02 Sat: 99 ECG Mon: 4. Pain Intensity: 5 5. Fall Risk: Dizziness: N Needs help standing or walking: N Fallen in the last 3 months: N Fall risk comments: 6. Patient on Blood Thinner: None 7. History of Hypertension: Y 8. Opioid Therapy greater than 6 weeks: N Opiate Contract Signed: 9. Risk Assessment Tool Provided: low-0 10. Functional Assessment Tool: 11. Recreational Drug Use: Never Drug Type: Tobacco Use: Never Smoker Tobacco Type: Amount or Packs/day: How Many Years: Alcohol Use: No Frequency: Quant:
--- NOTE | 2021-04-28 07:28 | HPC ---
[facility] [address] [place] [address] PAIN MANAGEMENT CONSULTATION Name: KELLY PEARL [id number] Admission: 04/26/21 Attend Phys: Sabas Vasquez DO Discharge: Date of : 61 Report #: [id number] THIS REPORT FOR: cc: Dionisio Jane MD,Sabas Mackenzie MD, DO ~ cc: Dionisio Jane MD DATE OF SERVICE: 04/26/2021 REFERRING PHYSICIAN: Dionisio Jane MD CHIEF COMPLAINT: Low back pain, left lower extremity pain with paresthesias. HISTORY OF PRESENT ILLNESS: As you know, the patient is a very pleasant 55-year-old female, reporting acute onset of low back pain, left lower extremity pain with paresthesia, began in 02/2017. She has undergone epidural injections under fluoroscopic guidance to address lumbar radiculopathy over the years with good effect. The most recent epidural injection according to the patient provided 85% improvement in overall pain for nearly 6 months. She has returned today in followup visit requesting to undergo next in the series of lumbar epidural injections to address recurrent radicular symptoms, for which she places pain score 5/10. The patient denies injury or trauma or any changes in medication management since our last visit. ALLERGIES: SULFA. CURRENT MEDICATIONS: Nabumetone, triamterene/hydrochlorothiazide, multivitamins, vitamin E. SOCIAL HISTORY: The patient is a nonsmoker. Denies IV or illicit drug use. Denies any chronic alcohol use. She is working, not receiving workmen's compensation, unaccompanied today. IMAGING: No new imaging available. PHYSICAL EXAMINATION: VITAL SIGNS: Blood pressure 149/82, pulse 83, respiratory rate 16 and unlabored. The patient 99% on room air. Height 5 feet 6 inches tall, weight 186 pounds, BMI calculated 30.0. GENERAL: Well-developed, well-nourished, well-hydrated 56-year-old female, appearing stated age. Pain is rated today 5/10. HEENT: Head is normocephalic, atraumatic. Pupils equal, round and responsive. She is wearing a mask in compliance with COVID-19 regulations. EXTREMITIES: Show no clubbing, no cyanosis, no edema. MUSCULOSKELETAL: Lower extremity strength remains symmetrical, again today 5/5. Seated straight leg raising negative. Supine straight leg raising positive on [address] [address] PAIN MANAGEMENT CONSULTATION Name: KELLY PEARL Room #: REG [facility]#: [id number] Admission: 04/26/21 Attend Phys: Sabas Vasquez DO Discharge: Date of : 61 Report #: [id number] the left. HECTOR's test negative. Modified Gaenslen's positive for axial back pain. Muscle bulk and tone is equal and symmetrical in lower extremities. ASSESSMENT: 1. Symptomatic lumbar radiculopathy. 2. Displacement of lumbar intervertebral disk with radiculopathy. 3. Lumbosacral spondylosis with radiculopathy. 4. Chronic intractable pain. PLAN: 1. The patient returns today in followup visit, requesting to undergo lumbar epidural injection under fluoroscopic guidance. The patient reports 85% improvement in overall pain lasting for nearly 6 months. Unfortunately, her symptoms have reoccurred. She returns today for an epidural injection under fluoroscopic guidance. The patient has been advised risks and benefits of the procedure, states understood and wished to proceed. 2. No medication changes made at today's visit. The patient will continue current medical therapy as prior prescribed. 3. We will see the patient back in followup visit on an as needed basis for the next in the series of lumbar epidural injections. We are hopeful the patient once again see good and prolonged benefit with today's procedure. PROCEDURE NOTE: DESCRIPTION OF PROCEDURE: L5-S1 left paramedian epidural steroid injection under fluoroscopic guidance. After obtaining written consent, the patient taken back to fluoroscopy suite, placed in prone position with pillow under abdomen to decrease lumbar lordosis. Skin overlying lumbosacral area prepped and draped in aseptic fashion. The L5-S1 vertebral interspace identified by AP fluoroscopy. Skin and subcutaneous tissue overlying target site injection anesthetized with 3 mL 1% lidocaine. A 20 gauge 3-1/2 inch Tuohy needle advanced under fluoroscopic guidance towards the epidural space using left paramedian approach. Epidural space identified using loss of resistance to air technique. After negative aspiration for heme or cerebrospinal fluid, 1 mL of Omnipaque injected. Lumbar epidurogram was confirmed using both AP and lateral fluoroscopy. After negative aspiration for heme or cerebrospinal fluid, 5 mL of solution containing 2 mL, 40 mg/mL, 80 mg total triamcinolone along with 3 mL of lidocaine, 1% injected slowly. Needle retracted long term, flushed with 1 mL of 1% lidocaine and removed. Sterile bandage placed over injection site. There were no new motor deficits present in the lower extremities following procedure. The patient tolerated the procedure well, carefully escorted to recovery room in [facility] [address] [place] [address] PAIN MANAGEMENT CONSULTATION Name: KELLY PEARL Room #: REG [facility] [id number] Admission: 04/26/21 Attend Phys: Sabas Vasquez DO Discharge: Date of : 61 Report #: [id number] stable condition. No apparent complications. After meeting discharge criteria, the patient discharged home. <ELECTRONICALLY SIGNED> By: Sabas Vasquez DO 04/28/21 0728 1509 0051 Sabas Vasquez DO /nt
== END | disposition home or self-care (01) ==
LOC: PAIN 08:25
PROVIDERS: ATTEND Anesthesiology Pain Medicine
DX: M51.16 Intervertebral disc disorders with radiculopathy, lumbar region (principal); M47.27 Other spondylosis with radiculopathy, lumbosacral region; G89.29 Other chronic pain; M19.90 Unspecified osteoarthritis, unspecified site; Z98.890 Other specified postprocedural states; Z79.899 Other long term (current) drug therapy

== ENCOUNTER → 2021-06-28 | Outpatient (CLI) | payer OTHER ==
[~2021-06-28] VITALS: Ht 167.6 cm; Wt 83.5 kg
--- NOTE | ~2021-06-28 | HPC ---
[facility] [place] [address] PAIN MANAGEMENT CONSULTATION Name: KELLY PEARL [id number] Admission: 06/28/21 Attend Phys: Sabas Vasquez DO Discharge: Date of : 61 Report #: [id number] THIS REPORT FOR: cc: Dionisio Jane MD,Sabas Mackenzie MD, DO ~ cc: Dionisio Jane MD DATE OF SERVICE: 06/28/2021 REFERRING PHYSICIAN: Dionisio Jane MD CHIEF COMPLAINT: Low back pain, left lower extremity pain with paresthesias. HISTORY OF PRESENT ILLNESS: As you know, the patient is a very pleasant 56-year-old female who reports acute onset of low back pain, left lower extremity pain with paresthesias that began in 02/2017. She has undergone epidural injections under fluoroscopic guidance over the years with good effect. The patient underwent a lumbar epidural injection on 04/26/2021 with our clinic reporting good improvement in symptoms. In fact, she was doing so well. She participated in a recent move of her home and unfortunately this exacerbated her symptoms. She reported up to 70-80% improvement in overall pain with the injection at last visit. She states over the past couple of weeks, her pain has returned and this was after the recent move from her current home to her new home. She states she also had an incident where she tripped over a dog and this increased her pain even further. She has not sought evaluation after this fall with her dog, but is complaining of pain in a typical pain distribution for her. She returns requesting a lumbar epidural injection under fluoroscopic guidance. She is placing pain score today at a level of 5-6/10. ALLERGIES: SULFA. CURRENT MEDICATIONS: Nabumetone, triamterene/ hydrochlorothiazide, multivitamins, vitamin E. SOCIAL HISTORY: The patient is a nonsmoker. Denies IV or illicit drug use. Denies any chronic alcohol use. She is working, not receiving workmen's compensation, unaccompanied today. IMAGING: No new imaging available. PHYSICAL EXAMINATION: VITAL SIGNS: Blood pressure 143/71, pulse 93, respiratory rate 20, unlabored. The patient 100% on room air. Height 5 feet 6 inches tall, weight 184 pounds, BMI calculated 29.7. GENERAL: Well-developed, well-nourished, well-hydrated 56-year-old female appearing stated age, pain is rated today 5-6/10. [address] [address] PAIN MANAGEMENT CONSULTATION Name: KELLY PEARL Room #: [facility]#: [id number] Admission: 06/28/21 Attend Phys: Sabas Vasquez DO Discharge: Date of : 61 Report #: [id number] HEENT: Normocephalic, atraumatic. Pupils are round, wearing a mask in compliance with COVID-19 regulations. EXTREMITIES: Show no clubbing, no cyanosis, no edema. MUSCULOSKELETAL: Lower extremity strength equal and symmetrical 5/5. Muscle bulk, tone equal and symmetrical in lower extremities. Seated straight leg raising is negative. Supine straight leg raising positive on the left. There is no ecchymosis over the lumbar spine. No spinous process tenderness. ASSESSMENT: 1. Symptomatic lumbar radiculopathy. 2. Displacement of lumbar intervertebral disk with radiculopathy. 3. Lumbosacral spondylosis with radiculopathy. 4. Chronic intractable pain. PLAN: 1. The patient returns today in followup visit requesting a lumbar epidural injection under fluoroscopic guidance. She has done very well with previous epidural injections noticing up to 70-80% improvement in overall pain with the injection. This lasted until her recent issues with both the recent move from her old home to her new home and tripping over the dog. She states this combination led to recurrence of pain. She returns today requesting lumbar epidural injection under fluoroscopic guidance. She has been advised risks and benefits of the procedure, states understood and wished to proceed. 2. No medication changes made at today's visit. The patient will continue current medical therapy as prior prescribed. 3. Plan to see the patient back in followup visit for the next in the series of lumbar epidural injections on an as needed basis. We are hopeful the patient will see good and prolonged benefit with the injection provided today. PROCEDURE NOTE. DESCRIPTION OF PROCEDURE: L4-L5 left paramedian epidural steroid injection under fluoroscopic guidance. After obtaining written consent, the patient was taken back to fluoroscopy suite, placed in prone position pillow under abdomen to decrease lumbar lordosis. Skin overlying lumbosacral area prepped and draped in aseptic fashion. The L4-L5 vertebral interspace was identified by AP fluoroscopy. Skin and subcutaneous tissue overlying target site injection anesthetized with 3 mL 1% lidocaine. A 20 gauge 3-1/2 inch Tuohy needle advanced under fluoroscopic guidance towards the epidural space using a left paramedian approach. Epidural space identified using loss of resistance to air technique. After negative aspiration for heme or cerebrospinal fluid, 1 mL of Omnipaque injected. Lumbar epidurogram was confirmed using both AP and lateral fluoroscopy. After negative aspiration for [facility] [address] [place] [address] PAIN MANAGEMENT CONSULTATION Name: KELLY PEARL Room #: [facility]#: [id number] Admission: 06/28/21 Attend Phys: Sabas Vasquez DO Discharge: Date of : 61 Report #: [id number] heme or cerebrospinal fluid, 5 mL solution containing 2 mL 40 mg per mL 80 mg total triamcinolone along with 3 mL of lidocaine, 1% injected slowly. Needle retracted jail flushed with 1 mL of 1% lidocaine and removed. Sterile bandage placed over injection site. There were no new motor deficits present in lower extremity following procedure. The patient tolerated the procedure well, carefully escorted to recovery room in stable condition. No apparent complications. After meeting discharge criteria, the patient discharged home. By: [id number] Sabas Vasquez DO /nt
[2021-06-28 10:56] VITALS: BP 143/71
--- NOTE | 2021-06-28 11:07 | NUR ---
Pain Clinic Assessment: 1. History of Osteoarthritis: B/L HIPS B/L ELBOWS B/L SHOULDERS B/L ANKLES BACK History of Rheumatoid Arthritis: NONE 2. Height: 5 ft. 6 in. 167.6 cm. Weight: 184.0 lb. oz. 83.462 kg. Patient's BMI: 29.7 3. Vital Signs: BP: 143/71 Pulse: 93 Resp: 20 Temp: 02 Sat: 100 ECG Mon: 4. Pain Intensity: 5-6 5. Fall Risk: Dizziness: N Needs help standing or walking: N Fallen in the last 3 months: Y Fall risk comments: 6. Patient on Blood Thinner: None 7. History of Hypertension: Y 8. Opioid Therapy greater than 6 weeks: N Opiate Contract Signed: 9. Risk Assessment Tool Provided: low-0 10. Functional Assessment Tool: 11. Recreational Drug Use: Never Drug Type: Tobacco Use: Never Smoker Tobacco Type: Amount or Packs/day: How Many Years: Alcohol Use: No Frequency: Quant:
== END | disposition home or self-care (01) ==
LOC: PAIN 09:42
PROVIDERS: ATTEND Anesthesiology Pain Medicine
DX: M51.16 Intervertebral disc disorders with radiculopathy, lumbar region (principal); M47.27 Other spondylosis with radiculopathy, lumbosacral region; G89.29 Other chronic pain; Z98.890 Other specified postprocedural states; Z79.899 Other long term (current) drug therapy; Z88.2 Allergy status to sulfonamides